=== PATIENT | female | born 1985 | race Caucasian/White ===

== ENCOUNTER 2017-01-22 14:07 | Emergency (ER) | payer OTHER ==
--- NOTE | 2017-01-22 15:10 | EDM.PDOC ---
ED HPI GENERAL MEDICAL PROBLEM - General Chief Complaint: Abdominal Pain Stated Complaint: SEVERE ABDOMINAL PAIN Time Seen by Provider: 01/22/17 14:40 Source of Information: Reports: Patient History Limitations: Reports: No Limitations - History of Present Illness INITIAL COMMENTS - FREE TEXT/NARRATIVE: HISTORY AND PHYSICAL: History of present illness: [Patient comes to the emergency room complaining of upper abdominal discomfort. Onset: 5 AM this morning and has remained constant. She describes the pain and describes it as a tight band across her upper abdomen and a feeling of pressure. She felt cold and clammy last night, but did not have any abdominal pain. Slept well until the pain woke her at 5 AM this morning. She has a family history of pancreatitis. She is very concerned that she may have pancreatitis. 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 She does not smoke and drinks alcohol approximately twice per year. Last ETOH intake was about 6-7 months ago. She denies fever and chills but states that she felt clammy last evening. She's had 2 episodes of emesis today, both times after trying to eat. Diminished appetite due to nausea. No burning with urination or urinary frequency. No muscle or joint aches or pains. No constipation or diarrhea. No recent cough or cold. No recent infections. No runny nose or sore throat. Does not get regular periods due to a tubal ligation & history of endometrial ablation. History of appendectomy and cholecystectomy. No recent trauma. ] Review of systems: As per history of present illness and below otherwise all systems reviewed and negative. Past medical history: As per history of present illness and as reviewed below otherwise noncontributory. Surgical history: As per history of present illness and as reviewed below otherwise noncontributory. Social history: No reported history of drug or alcohol abuse. Family history: As per history of present illness and as reviewed below otherwise noncontributory. Physical exam: HEENT: Atraumatic, normocephalic. Oral mucous membranes are pink and moist. Lungs: Clear to auscultation, breath sounds equal bilaterally. Heart: S1S2, regular rate and rhythm. Abdomen: Abdomen is flat and nondistended, soft. She is tender with palpation over her mid abdomen and throughout her upper abdomen. No masses guarding or rebound. No CVA tenderness. Pelvis: Stable nontender. Genitourinary: Deferred. Rectal: Deferred. Extremities: Atraumatic. Neurovascular unremarkable. Neuro: Awake, alert, oriented. Motor and sensory unremarkable throughout. Exam nonfocal. Diagnostics: [CBC, CMP, UA, qualitative Hcg, amylase, lipase ] Therapeutics: [Zofran 4mg ODT] Impression: [abdominal pain] Plan: [Discussed patient's lab results with her. No abnormalities are noted. Amylase and lipase are within normal limits. Patient states that she is relieved with this information. We discussed CT of her abdomen and pelvis versus continued monitoring at home. After reviewing pros and cons patient would like to be discharged to home with continued monitoring of her symptoms. Strict return precautions are reviewed with the patient and we discussed that if she should feels though she is worsening or desires reevaluation in the emergency room will complete a CT scan at this time. We also reviewed that it is possible she has a viral illness causing her discomfort. Recommend pushing fluids and bland diet which she may gradually increase as tolerated. She verbalized full understanding of today's discussion and all of her questions are answered and concerns are addressed. She is offered a prescription for Zofran which she declines at this time.] Definitive disposition and diagnosis as appropriate pending reevaluation and review of above. Bilateral Lower Abdominal Pain Score (Numeric/FACES): 8 - Related Data Allergies Allergy/AdvReac Type Severity Reaction Status Date / Time hydromorphone [From Dilaudid] Allergy Swollen Verified 01/22/17 14:20 Eyes Home Meds: Home Meds . 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 ED EXAM, GI/ABD - Physical Exam Exam: See Below Course - Vital Signs Last Recorded V/S: Last Vital Signs Temp 97.8 F 01/22/17 17:09 Pulse 66 01/22/17 17:09 Resp 14 01/22/17 17:09 BP 102/57 L 01/22/17 17:09 Pulse Ox 100 01/22/17 17:09 - Orders/Labs/Meds Labs: Laboratory Tests 01/22/17 01/22/17 01/22/17 Range/Units 14:50 14:50 14:58 WBC 4.38 (4.0-11.0) K/uL RBC 4.30 (4.30-5.90) M/uL Hgb 11.6 L (12.0-16.0) g/dL Hct 35.7 L (36.0-46.0) % MCV 83.0 (80.0-98.0) fL MCH 27.0 (27.0-32.0) pg MCHC 32.5 (31.0-37.0) g/dL RDW Std Deviation 38.6 (28.0-62.0) fl RDW Coeff of Mony 13 (11.0-15.0) % Plt Count 187 (150-400) K/uL MPV 10.20 (7.40-12.00) fL Neut % (Auto) 54.8 (48.0-80.0) % Lymph % (Auto) 35.8 (16.0-40.0) % Carter % (Auto) 6.8 (0.0-15.0) % Eos % (Auto) 2.1 (0.0-7.0) % Baso % (Auto) 0.5 (0.0-1.5) % Neut # (Auto) 2.4 (1.4-5.7) K/uL Lymph # (Auto) 1.6 (0.6-2.4) K/uL Carter # (Auto) 0.3 (0.0-0.8) K/uL Eos # (Auto) 0.1 (0.0-0.7) K/uL Baso # (Auto) 0.0 (0.0-0.1) K/uL Nucleated RBC % 0.0 /100WBC Nucleated RBCs # 0 K/uL Sodium (136-146) mmol/L Potassium (3.5-5.1) mmol/L Chloride (98-110) mmol/L Carbon Dioxide (21-31) mmol/L BUN (6.0-23.0) mg/dL Creatinine (0.6-1.5) mg/dL Est Cr Clr Drug Dosing mL/min Estimated GFR (MDRD) ml/min Glucose (60-110) mg/dL Calcium (8.8-10.8) mg/dL Total Bilirubin (0.1-1.5) mg/dL AST (5-40) IU/L ALT (8-54) IU/L Alkaline Phosphatase (40-150) Total Protein (6.0-8.0) g/dL Albumin (3.5-5.0) g/dL Globulin (2.0-3.5) g/dL Albumin/Globulin Ratio (1.3-2.8) Amylase (10-90) U/L Lipase (7-80) U/L Urine Color YELLOW Urine Appearance CLEAR Urine pH 5.5 (5.0-8.0) Ur Specific [place] >= 1.030 (1.001-1.035) Urine Protein NEGATIVE (NEGATIVE) mg/dL Urine Glucose (UA) NEGATIVE (NEGATIVE) mg/dL Urine Ketones NEGATIVE (NEGATIVE) mg/dL Urine Occult Blood NEGATIVE (NEGATIVE) Urine Nitrite NEGATIVE (NEGATIVE) Urine Bilirubin NEGATIVE (NEGATIVE) Urine Urobilinogen 0.2 (<2.0) EU/dL Ur Leukocyte Esterase NEGATIVE (NEGATIVE) Urine RBC 0-1 (0-2/HPF) Urine WBC 1-3 (0-5/HPF) Ur Epithelial Cells FEW (NONE-FEW) Urine Bacteria FEW (NEGATIVE) Urine Mucus MODERATE (NONE-MOD) Urine HCG, Qual NEGATIVE (NEGATIVE) 01/22/17 Range/Units 14:58 WBC (4.0-11.0) K/uL RBC (4.30-5.90) M/uL Hgb (12.0-16.0) g/dL Hct (36.0-46.0) % MCV (80.0-98.0) fL MCH (27.0-32.0) pg MCHC (31.0-37.0) g/dL RDW Std Deviation (28.0-62.0) fl RDW Coeff of Mony (11.0-15.0) % Plt Count (150-400) K/uL MPV (7.40-12.00) fL Neut % (Auto) (48.0-80.0) % Lymph % (Auto) (16.0-40.0) % Carter % (Auto) (0.0-15.0) % Eos % (Auto) (0.0-7.0) % Baso % (Auto) (0.0-1.5) % Neut # (Auto) (1.4-5.7) K/uL Lymph # (Auto) (0.6-2.4) K/uL Carter # (Auto) (0.0-0.8) K/uL Eos # (Auto) (0.0-0.7) K/uL Baso # (Auto) (0.0-0.1) K/uL Nucleated RBC % /100WBC Nucleated RBCs # K/uL Sodium 139 (136-146) mmol/L Potassium 3.8 (3.5-5.1) mmol/L Chloride 108 (98-110) mmol/L Carbon Dioxide 24 (21-31) mmol/L BUN 12 (6.0-23.0) mg/dL Creatinine 0.8 (0.6-1.5) mg/dL Est Cr Clr Drug Dosing 105.51 mL/min Estimated GFR (MDRD) > 60.0 ml/min Glucose 93 (60-110) mg/dL Calcium 8.6 L (8.8-10.8) mg/dL Total Bilirubin 0.4 (0.1-1.5) mg/dL AST 14 (5-40) IU/L ALT 14 (8-54) IU/L Alkaline Phosphatase 74 (40-150) Total Protein 6.4 (6.0-8.0) g/dL Albumin 3.7 (3.5-5.0) g/dL Globulin 2.7 (2.0-3.5) g/dL Albumin/Globulin Ratio 1.4 (1.3-2.8) Amylase 78 (10-90) U/L Lipase 57 (7-80) U/L Urine Color Urine Appearance Urine pH (5.0-8.0) Ur Specific [place] (1.001-1.035) Urine Protein (NEGATIVE) mg/dL Urine Glucose (UA) (NEGATIVE) mg/dL Urine Ketones (NEGATIVE) mg/dL Urine Occult Blood (NEGATIVE) Urine Nitrite (NEGATIVE) Urine Bilirubin (NEGATIVE) Urine Urobilinogen (<2.0) EU/dL Ur Leukocyte Esterase (NEGATIVE) Urine RBC (0-2/HPF) Urine WBC (0-5/HPF) Ur Epithelial Cells (NONE-FEW) Urine Bacteria (NEGATIVE) Urine Mucus (NONE-MOD) Urine HCG, Qual (NEGATIVE) Meds: Medications Discontinued Medications Generic Name Dose Route Start Last Admin Trade Name Earline PRN Reason Stop Dose Admin Ondansetron HCl 4 mg 01/22/17 16:00 01/22/17 16:14 Zofran Odt PO 01/22/17 16:01 4 mg ONETIME ONE Administration Departure - Departure Time of Disposition: 17:01 Disposition: Home, Self-Care 01 Condition: Good Clinical Impression: Abdominal pain - Discharge Information Instructions: Abdominal Pain, Adult Referrals: PCP,None [Primary Care Provider] - Forms: ED Department Discharge Additional Instructions: The following information is given to patients seen in the emergency department who are being discharged to home. This information is to outline your options for follow-up care. We provide all patients seen in our emergency department with a follow-up referral. The need for follow-up, as well as the timing and circumstances, are variable depending upon the specifics of your emergency department visit. If you don't have a primary care physician on staff, we will provide you with a referral. We always advise you to contact your personal physician following an emergency department visit to inform them of the circumstance of the visit and for follow-up with them and/or the need for any referrals to a consulting specialist. The emergency department will also refer you to a specialist when appropriate. This referral assures that you have the opportunity for follow-up care with a specialist. All of these measure are taken in an effort to provide you with optimal care, which includes your follow-up. Under all circumstances we always encourage you to contact your private physician who remains a resource for coordinating your care. When calling for follow-up care, please make the office aware that this follow-up is from your recent emergency room visit. If for any reason you are refused follow-up, please contact the [facility] emergency department at and asked to speak to the emergency department charge nurse. [facility] [address] [place] [id number] Establish care with a local primary care provider or the clinic listed above. Continue to monitor symptoms. Push fluids, get plenty of rest. Return to ER as needed as discussed.
[2017-01-22 15:29] LABS: CHLORIDE,CL 108 mmol/L (98-110); SODIUM,NA 139 mmol/L (136-146)
[2017-01-22] MEDS ORDERED: Ondansetron 4 MG Tab.DIS PO ONE (16:00)
== END 2017-01-22 17:10 | disposition home or self-care (01) ==
LOC: MW.ED 14:07
DX: R10.10 Upper abdominal pain, unspecified (principal); R10.31 Right lower quadrant pain; R10.32 Left lower quadrant pain; Z88.5 Allergy status to narcotic agent
CPT/HCPCS: 36415; 80053; 81001; 81025; 82150; 83690; 85025; 99284; A9270; 99283

== ENCOUNTER 2017-03-28 12:53 | Emergency (ER) | payer BC, OTHER ==
--- NOTE | 2017-03-28 14:20 | EDM.PDOC ---
ED HPI GENERAL MEDICAL PROBLEM - General Chief Complaint: Abdominal Pain Stated Complaint: ABD PAIN/PRESSURE Time Seen by Provider: 03/28/17 13:38 Source of Information: Reports: Patient History Limitations: Reports: No Limitations - History of Present Illness INITIAL COMMENTS - FREE TEXT/NARRATIVE: History of present illness: Patient had laparoscopic for endometriosis in 2016. A subsequent abdominal wall abscess that was drained and drainage tube placed. Her wound healed she recently started having pus draining from her umbilicus once again. He says she feels pressure in her abdomen and it feels the same. Denies any fevers, chills, abdominal pain, nausea, vomiting or diarrhea. Review of systems: As per history of present illness and below otherwise all systems reviewed and negative. Past medical history: As per history of present illness and as reviewed below otherwise noncontributory. Surgical history: As per history of present illness and as reviewed below otherwise noncontributory. Social history: No reported history of drug or alcohol abuse. Family history: As per history of present illness and as reviewed below otherwise noncontributory. Physical exam: Vital signs stable afebrile General: Well developed, well nourished in NAD HEENT: Atraumatic, normocephalic, pupils reactive, negative for conjunctival pallor or scleral icterus, mucous membranes moist, throat clear, neck supple, nontender, trachea midline. Lungs: Clear to auscultation, breath sounds equal bilaterally, chest nontender. Heart: S1S2, regular, negative for clicks, rubs, or JVD. Abdomen: Soft, nondistended, nontender no rebound or guarding. Umbilicus with erythema and some small amount of purulent drainage from her umbilicus. Negative for masses or hepatosplenomegaly. Negative for costovertebral tenderness. Pelvis: Stable nontender. Genitourinary: Deferred. Rectal: Deferred. Extremities: Atraumatic, negative for cords or calf pain. Neurovascular unremarkable. Neuro: Awake, alert, oriented. Cranial nerves II through XII unremarkable. Cerebellum unremarkable. Motor and sensory unremarkable throughout. Exam nonfocal. Diagnostics: [] Therapeutics: []Umbilical Wound culture sent Impression: []Umbilical abscess Plan: []Flagyl 3 times a day, keep wound clean, follow-up with general surgery Definitive disposition and diagnosis as appropriate pending reevaluation and review of above. 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 History: Reports: Endometrial Ablation Musculoskeletal History: Reports: None Neurological History: Reports: None Psychiatric History: Reports: None Endocrine/Metabolic History: Reports: None Hematologic History: Reports: None Immunologic History: Reports: None Oncologic (Cancer) History: Reports: None Dermatologic History: Reports: None - Infectious Disease History Infectious Disease History: Reports: Hepatitis A, Other (See Below) Other Infectious Disease History: Hx of Hep A, not currently positive - Past Surgical History Head Surgeries/Procedures: Reports: None HEENT Surgical History: Reports: Other (See Below) Other HEENT Surgeries/Procedures: tooth removed Cardiovascular Surgical History: Reports: None Respiratory Surgical History: Reports: None GI Surgical History: Reports: Appendectomy, Cholecystectomy Female Surgical History: Reports: Tubal Ligation Endocrine Surgical History: Reports: None Neurological Surgical History: Reports: None Musculoskeletal Surgical History: Reports: None Oncologic Surgical History: Reports: None Dermatological Surgical History: Reports: None Social & Family History - Family History Family Medical History: Noncontributory - Tobacco Use Smoking Status *Q: Never Smoker Second Hand Smoke Exposure: No - Caffeine Use Caffeine Use: Reports: Soda - Recreational Drug Use Recreational Drug Use: No ED ROS GENERAL - Review of Systems Review Of Systems: See Below (See history of present illness) ED EXAM, SKIN/RASH Exam: See Below (See history of present illness) Course - Vital Signs Last Recorded V/S: Last Vital Signs Temp 97.7 F 03/28/17 13:36 Pulse 78 03/28/17 13:36 Resp 18 03/28/17 13:36 BP 126/74 03/28/17 13:36 Pulse Ox 98 03/28/17 13:36 - Orders/Labs/Meds Orders: Active Orders 24 hr Category Date Time Status CULTURE WOUND [RM] Stat Lab 03/28/17 14:15 Uncollected Departure - Departure Time of Disposition: 14:18 Disposition: Home, Self-Care 01 Condition: Good Clinical Impression: Cutaneous abscess of umbilicus Clinical Impression: (Ruled Out): Abscess, umbilical - Discharge Information Prescriptions: metroNIDAZOLE [Flagyl] 500 mg PO Q8H #30 tab Referrals: PCP,None [Primary Care Provider] - Maria T Guaman MD [Physician] - (Next available) Additional Instructions: The following information is given to patients seen in the emergency department who are being discharged to home. This information is to outline your options for follow-up care. We provide all patients seen in our emergency department with a follow-up referral. The need for follow-up, as well as the timing and circumstances, are variable depending upon the specifics of your emergency department visit. If you don't have a primary care physician on staff, we will provide you with a referral. We always advise you to contact your personal physician following an emergency department visit to inform them of the circumstance of the visit and for follow-up with them and/or the need for any referrals to a consulting specialist. The emergency department will also refer you to a specialist when appropriate. This referral assures that you have the opportunity for follow-up care with a specialist. All of these measure are taken in an effort to provide you with optimal care, which includes your follow-up. Under all circumstances we always encourage you to contact your private physician who remains a resource for coordinating your care. When calling for follow-up care, please make the office aware that this follow-up is from your recent emergency room visit. If for any reason you are refused follow-up, please contact the Emergency Department at and asked to speak to the emergency department charge nurse. Flagyl 3 times a day for 10 days umbilical wound clean and dry. General surgery Specialty Care - General Surgery Professional Building [address] [place] [address], [address] [place] [address] - My Orders Last 24 Hours: My Active Orders 03/28/17 14:15 CULTURE WOUND [RM] Stat - Assessment/Plan Last 24 Hours: My Active Orders 03/28/17 14:15 CULTURE WOUND [RM] Stat
== END 2017-03-28 14:30 | disposition home or self-care (01) ==
LOC: MW.ED 12:53
DX: L02.216 Cutaneous abscess of umbilicus (principal); Z90.49 Acquired absence of other specified parts of digestive tract; Z88.5 Allergy status to narcotic agent
CPT/HCPCS: 87070; 99283; 99284

== ENCOUNTER 2017-06-15 17:29 | Emergency (ER) | payer BC ==
--- NOTE | 2017-06-15 17:41 | EDM.PDOC ---
ED HPI GENERAL MEDICAL PROBLEM - General Chief Complaint: Abdominal Pain Stated Complaint: PAIN/SWELLING ABDOMINAL PAIN Time Seen by Provider: 06/15/17 17:30 Source of Information: Reports: Patient History Limitations: Reports: No Limitations - History of Present Illness INITIAL COMMENTS - FREE TEXT/NARRATIVE: HISTORY AND PHYSICAL: History of present illness: Patient is a 32-year-old female who presents to the emergency room with complaints of low abdominal pain and nausea since 06/10/2017. She states that the pain has progressively gotten worse over the last several days. She was seen at [facility] emergency room and had lab tests, CT of the abdomen and pelvis, and received IV antibiotics for "gastroenteritis". She states the pain has not improved since that time, fact gotten worse. History of UTIs, just completed Bactrim DS on Tuesday. States she has difficulty starting her stream, along with dysuria. She has a history of pancreatitis, but reports "it doesn't feel like that kind of pain". Bowel movements are normal. Denies any fever, chills, chest pain, shortness of breath or cough. Patient has had a endometrial ablation approximately 8 months ago and since has not had a menstrual period. Review of systems: As per history of present illness and below otherwise all systems reviewed and negative. Past medical history: As per history of present illness and as reviewed below otherwise noncontributory. Surgical history: As per history of present illness and as reviewed below otherwise noncontributory. Social history: No reported history of drug or alcohol abuse. Family history: As per history of present illness and as reviewed below otherwise noncontributory. Physical exam: General: Well-developed and well-nourished 32-year-old female. Alert and oriented. Nontoxic appearing and in no acute distress. HEENT: Atraumatic, normocephalic, pupils equal and reactive bilaterally, negative for conjunctival pallor or scleral icterus, mucous membranes moist, throat clear, neck supple, nontender, trachea midline. No drooling or trismus noted. No meningeal signs Lungs: Clear to auscultation, breath sounds equal bilaterally, chest nontender. Heart: S1S2, regular rate and rhythm without overt murmur Abdomen: Soft, nondistended, low abdominal tenderness. Negative for masses or hepatosplenomegaly. Negative for costovertebral tenderness. Pelvis: Stable nontender. Genitourinary: Deferred. Rectal: Deferred. Skin: Multiple tattoos noted throughout the body. Intact, warm, dry. No lesions or rashes noted. Extremities: Atraumatic, negative for cords or calf pain. Neurovascular unremarkable. Neuro: Awake, alert, oriented. Cranial nerves II through XII unremarkable. Cerebellum unremarkable. Motor and sensory unremarkable throughout. Exam nonfocal. Notes: Patient has had appendectomy and cholecystectomy. At this time the patient is declining a CT as she states that she had one in [facility] on Tuesday. She is agreeable to doing lab work and is requesting an ultrasound of her pelvis. Lab work and pelvic ultrasound are within normal limits. I did share this information with the patient unable to get the previous CT that was done last week. Patient is requesting that further evaluation be done and would like a CT done today. CT of the abdomen and pelvis shows no acute abnormalities. This information was shared with the patient. Give her a limited amount of tramadol and Zofran. We discussed appropriate follow-up with her primary care provider. Understanding and is agreeable to plan of care. She denies any further questions at this time. Diagnostics: CBC, CMP, amylase, lipase, UA, urine , abdominal/pelvic ultrasound Therapeutics: IV fluid, Toradol, Zofran Impression: Abdominal pain Plan: 1. [place] for the next 24-48 hours. Advance as tolerated. 2. Take your prescription for tramadol as needed for moderate to severe pain. Tramadol may cause drowsiness so do not take it will driving or needing to be functioning outside of the house. Otherwise you may take Tylenol and/or ibuprofen as needed. Zofran 1 tablet every 8 hours as needed for nausea management. Gentle heat to the low abdomen may be beneficial. 3. Follow-up with your primary caregiver in the next 1-2 days. Return to the ED as needed and as discussed. Definitive disposition and diagnosis as appropriate pending reevaluation and review of above. Duration: Day(s): Location: Reports: Abdomen Lower Abdominal Pain Score (Numeric/FACES): 9 - Related Data Allergies Allergy/AdvReac Type Severity Reaction Status Date / Time hydromorphone [From Dilaudid] Allergy Swollen Verified 06/15/17 17:42 Eyes Home Meds: Home Meds . [No Known Home Meds] 06/15/17 [History] Past Medical History HEENT History: Reports: None Cardiovascular History: Reports: None Respiratory History: Reports: None Gastrointestinal History: Reports: None Genitourinary History: Reports: Other (See Below) Other Genitourinary History: hx of UTI x2 [employer] History: Reports: Endometrial Ablation Musculoskeletal History: Reports: None Neurological History: Reports: None Psychiatric History: Reports: None Endocrine/Metabolic History: Reports: None Hematologic History: Reports: None Immunologic History: Reports: None Oncologic (Cancer) History: Reports: None Dermatologic History: Reports: None - Infectious Disease History Infectious Disease History: Reports: Hepatitis A, Other (See Below) Other Infectious Disease History: Hx of Hep A, not currently positive - Past Surgical History Head Surgeries/Procedures: Reports: None HEENT Surgical History: Reports: Other (See Below) Other HEENT Surgeries/Procedures: tooth removed Cardiovascular Surgical History: Reports: None Respiratory Surgical History: Reports: None GI Surgical History: Reports: Appendectomy, Cholecystectomy Female Surgical History: Reports: Tubal Ligation Endocrine Surgical History: Reports: None Neurological Surgical History: Reports: None Musculoskeletal Surgical History: Reports: None Oncologic Surgical History: Reports: None Dermatological Surgical History: Reports: None Social & Family History - Family History Family Medical History: Noncontributory - Tobacco Use Smoking Status *Q: Never Smoker Second Hand Smoke Exposure: No - Caffeine Use Caffeine Use: Reports: Soda - Recreational Drug Use Recreational Drug Use: No ED ROS GENERAL - Review of Systems Review Of Systems: ROS reveals no pertinent complaints other than HPI. ED EXAM, GI/ABD - Physical Exam Exam: See Below (See dictation) Course - Vital Signs Last Recorded V/S: Last Vital Signs Temp 98.0 F 06/15/17 17:38 Pulse 60 06/15/17 19:20 Resp 18 06/15/17 19:20 BP 112/74 06/15/17 19:20 Pulse Ox 98 06/15/17 19:20 - Orders/Labs/Meds Orders: Active Orders 24 hr Category Date Time Status Abdomen Pelvis w Cont [CT] Stat Exams 06/15/17 19:08 Taken Pelvis Non OB Comp [US] Stat Exams 06/15/17 17:53 Taken HCG QUALITATIVE,URINE [URCHEM] Stat Lab 06/15/17 17:55 Ordered UA W/MICROSCOPIC [URIN] Stat Lab 06/15/17 17:55 Ordered Labs: Laboratory Tests 06/15/1718 06/15/17 Range/Units 17:55 17:55 18:30 WBC 10.48 (4.0-11.0) K/uL RBC 4.73 (4.30-5.90) M/uL Hgb 13.1 (12.0-16.0) g/dL Hct 39.5 (36.0-46.0) % MCV 83.5 (80.0-98.0) fL MCH 27.7 (27.0-32.0) pg MCHC 33.2 (31.0-37.0) g/dL RDW Std Deviation 40.5 (28.0-62.0) fl RDW Coeff of Mony 13 (11.0-15.0) % Plt Count 227 (150-400) K/uL MPV 9.90 (7.40-12.00) fL Neut % (Auto) 81.3 H (48.0-80.0) % Lymph % (Auto) 13.5 L (16.0-40.0) % [place] % (Auto) 4.4 (0.0-15.0) % Eos % (Auto) 0.6 (0.0-7.0) % Baso % (Auto) 0.2 (0.0-1.5) % Neut # (Auto) 8.5 H (1.4-5.7) K/uL Lymph # (Auto) 1.4 (0.6-2.4) K/uL [place] # (Auto) 0.5 (0.0-0.8) K/uL Eos # (Auto) 0.1 (0.0-0.7) K/uL Baso # (Auto) 0.0 (0.0-0.1) K/uL Nucleated RBC % 0.0 /100WBC Nucleated RBCs # 0 K/uL Sodium (136-145) mmol/L Potassium (3.5-5.1) mmol/L Chloride (98-107) mmol/L Carbon Dioxide (21.0-32.0) mmol/L BUN (7.0-18.0) mg/dL Creatinine (0.6-1.0) mg/dL Est Cr Clr Drug Dosing mL/min Estimated GFR (MDRD) ml/min Glucose (74-106) mg/dL Calcium (8.5-10.1) mg/dL Total Bilirubin (0.2-1.0) mg/dL AST (15-37) IU/L ALT (14-63) IU/L Alkaline Phosphatase (46-116) U/L Total Protein (6.4-8.2) g/dL Albumin (3.4-5.0) g/dL Globulin (2.0-3.5) g/dL Albumin/Globulin Ratio (1.3-2.8) Amylase (25-115) U/L Lipase (73-393) U/L Urine Color YELLOW Urine Appearance CLEAR Urine pH 6.5 (5.0-8.0) Ur Specific [place] 1.020 (1.001-1.035) Urine Protein NEGATIVE (NEGATIVE) mg/dL Urine Glucose (UA) NEGATIVE (NEGATIVE) mg/dL Urine Ketones TRACE H (NEGATIVE) mg/dL Urine Occult Blood NEGATIVE (NEGATIVE) Urine Nitrite NEGATIVE (NEGATIVE) Urine Bilirubin NEGATIVE (NEGATIVE) Urine Urobilinogen 1.0 (<2.0) EU/dL Ur Leukocyte Esterase NEGATIVE (NEGATIVE) Urine RBC 0-1 (0-2/HPF) Urine WBC 0-2 (0-5/HPF) Ur Epithelial Cells FEW (NONE-FEW) Urine Bacteria RARE (NEGATIVE) Urine HCG, Qual NEGATIVE (NEGATIVE) 06/15/17 06/15/17 Range/Units 18:30 18:30 WBC (4.0-11.0) K/uL RBC (4.30-5.90) M/uL Hgb (12.0-16.0) g/dL Hct (36.0-46.0) % MCV (80.0-98.0) fL MCH (27.0-32.0) pg MCHC (31.0-37.0) g/dL RDW Std Deviation (28.0-62.0) fl RDW Coeff of Mony (11.0-15.0) % Plt Count (150-400) K/uL MPV (7.40-12.00) fL Neut % (Auto) (48.0-80.0) % Lymph % (Auto) (16.0-40.0) % [place] % (Auto) (0.0-15.0) % Eos % (Auto) (0.0-7.0) % Baso % (Auto) (0.0-1.5) % Neut # (Auto) (1.4-5.7) K/uL Lymph # (Auto) (0.6-2.4) K/uL [place] # (Auto) (0.0-0.8) K/uL Eos # (Auto) (0.0-0.7) K/uL Baso # (Auto) (0.0-0.1) K/uL Nucleated RBC % /100WBC Nucleated RBCs # K/uL Sodium 140 (136-145) mmol/L Potassium 3.4 L (3.5-5.1) mmol/L Chloride 105 (98-107) mmol/L Carbon Dioxide 26.2 (21.0-32.0) mmol/L BUN 10 (7.0-18.0) mg/dL Creatinine 0.9 (0.6-1.0) mg/dL Est Cr Clr Drug Dosing 92.91 mL/min Estimated GFR (MDRD) > 60.0 ml/min Glucose 112 H (74-106) mg/dL Calcium 8.9 (8.5-10.1) mg/dL Total Bilirubin 0.4 (0.2-1.0) mg/dL AST 17 (15-37) IU/L ALT 20 (14-63) IU/L Alkaline Phosphatase 92 (46-116) U/L Total Protein 7.6 (6.4-8.2) g/dL Albumin 3.9 (3.4-5.0) g/dL Globulin 3.7 H (2.0-3.5) g/dL Albumin/Globulin Ratio 1.1 L (1.3-2.8) Amylase 70 (25-115) U/L Lipase 192 (73-393) U/L Urine Color Urine Appearance Urine pH (5.0-8.0) Ur Specific [place] (1.001-1.035) Urine Protein (NEGATIVE) mg/dL Urine Glucose (UA) (NEGATIVE) mg/dL Urine Ketones (NEGATIVE) mg/dL Urine Occult Blood (NEGATIVE) Urine Nitrite (NEGATIVE) Urine Bilirubin (NEGATIVE) Urine Urobilinogen (<2.0) EU/dL Ur Leukocyte Esterase (NEGATIVE) Urine RBC (0-2/HPF) Urine WBC (0-5/HPF) Ur Epithelial Cells (NONE-FEW) Urine Bacteria (NEGATIVE) Urine HCG, Qual (NEGATIVE) Meds: Medications Discontinued Medications Generic Name Dose Route Start Last Admin Trade Name Earline PRN Reason Stop Dose Admin Sodium Chloride 1,000 mls @ 999 mls/hr 06/15/17 17:52 06/15/17 18:13 Normal Saline IV 06/15/17 18:52 999 mls/hr STAT ONE Administration Iopamidol 200 ml 06/15/17 19:45 06/15/17 19:48 Isovue Multipack-370 (76%) IVPUSH 06/15/17 19:46 100 ml ONETIME STA Administration Ketorolac Tromethamine 30 mg 06/15/17 17:52 06/15/17 18:29 Toradol IVPUSH 06/15/17 17:53 30 mg ONETIME ONE Administration Morphine Sulfate 4 mg 06/15/17 19:08 06/15/17 19:21 Morphine IVPUSH 06/15/17 19:09 4 mg ONETIME ONE Administration Ondansetron HCl 4 mg 06/15/17 17:52 06/15/17 18:26 Zofran IVPUSH 06/15/17 17:53 4 mg ONETIME ONE Administration Departure - Departure Time of Disposition: 20:25 Disposition: Home, Self-Care 01 Clinical Impression: Abdominal pain Qualifiers: Abdominal location: lower abdomen, unspecified Qualified Code(s): R10.30 - Lower abdominal pain, unspecified - Discharge Information Instructions: Abdominal Pain, Adult, [id number] Referrals: PCP,None [Primary Care Provider] - Forms: ED Department Discharge Additional Instructions: The following information is given to patients seen in the emergency department who are being discharged to home. This information is to outline your options for follow-up care. We provide all patients seen in our emergency department with a follow-up referral. The need for follow-up, as well as the timing and circumstances, are variable depending upon the specifics of your emergency department visit. If you don't have a primary care physician on staff, we will provide you with a referral. We always advise you to contact your personal physician following an emergency department visit to inform them of the circumstance of the visit and for follow-up with them and/or the need for any referrals to a consulting specialist. The emergency department will also refer you to a specialist when appropriate. This referral assures that you have the opportunity for follow-up care with a specialist. All of these measure are taken in an effort to provide you with optimal care, which includes your follow-up. Under all circumstances we always encourage you to contact your private physician who remains a resource for coordinating your care. When calling for follow-up care, please make the office aware that this follow-up is from your recent emergency room visit. If for any reason you are refused follow-up, please contact the [facility] Emergency Department at and asked to speak to the emergency department charge nurse. [facility] [address] [place] [id number] 1. [place] for the next 24-48 hours. Advance as tolerated. 2. Take your prescription for tramadol as needed for moderate to severe pain. Tramadol may cause drowsiness so do not take it will driving or needing to be functioning outside of the house. Otherwise you may take Tylenol and/or ibuprofen as needed. Zofran 1 tablet every 8 hours as needed for nausea management. Gentle heat to the low abdomen may be beneficial. 3. Follow-up with your primary caregiver in the next 1-2 days. Return to the ED as needed and as discussed. - My Orders Last 24 Hours: My Active Orders 06/15/17 17:53 Pelvis Non OB Comp [US] Stat 06/15/17 17:55 HCG QUALITATIVE,URINE [URCHEM] Stat UA W/MICROSCOPIC [URIN] Stat 06/15/17 19:08 Abdomen Pelvis w Cont [CT] Stat - Assessment/Plan Last 24 Hours: My Active Orders 06/15/17 17:53 Pelvis Non OB Comp [US] Stat 06/15/17 17:55 HCG QUALITATIVE,URINE [URCHEM] Stat UA W/MICROSCOPIC [URIN] Stat 06/15/17 19:08 Abdomen Pelvis w Cont [CT] Stat
[2017-06-15] MEDS ORDERED: Ketorolac 30 MG/ML SDV IVPUSH ONE (17:52)
[2017-06-15] MEDS ORDERED: Sodium Chloride 0.9% 1,000 ML IV ONE (17:52)
[2017-06-15] MEDS ORDERED: Ondansetron 4 MG/2 ML SDV IVPUSH ONE (17:52)
[2017-06-15] MEDS ORDERED: Morphine 4 MG/ML Syringe IVPUSH ONE (19:08)
[2017-06-15 19:13] LABS: CHLORIDE,CL 105 mmol/L (98-107); SODIUM,NA 140 mmol/L (136-145)
[2017-06-15] MEDS ORDERED: Iopamidol 755 MG/ML 200 ML Multipack Bottle IVPUSH STA (19:45)
--- NOTE | 2017-06-16 09:51 | US ---
EXAM DATE: 06/15/17 PATIENT'S AGE: 32 Patient: CHANG WEAVER Facility: [place], [place] Site . Site : 1985 Study: US Pelvis [id number] 6:18:32 PM Ordering Physician: Doctor Barnes Final Report: INDICATION: Pelvic pain. TECHNIQUE: Transvaginal scanning was performed to optimally evaluate the endometrium and adnexa. Ovarian blood flow was evaluated with color-flow and pulsed Doppler. COMPARISON: None. FINDINGS: The uterus is normal in size and shape. The uterus measures 5.9 x 3.6 x 2.7 cm. No uterine mass is evident. The endometrial stripe is normal in thickness at 5 mm. The ovaries are normal in size and contain a number of follicles. The right ovary measures 3.2 x 3.0 x 2.3 cm and left 2.6 x 2.2 x 2.1 cm. Ovarian blood flow is demonstrated with color-flow and pulsed Doppler. No adnexal mass is evident. No free fluid is demonstrated. IMPRESSION: Negative transvaginal pelvic ultrasound. Dictated by Willam Ridley MD @ Jun 15 2017 6:43PM (Electronic Signature) Report Signed by Proxy. OSWALDO
--- NOTE | 2017-06-16 10:11 | CT ---
EXAM DATE: 06/15/17 PATIENT'S AGE: 32 Patient: CHANG WEAVER Facility: [place], [place] Site . Site : 1985 Study: CT Abdomen/Pelvis WITH [id number]/[id number] 7:59:12 PM Ordering Physician: Doctor Barnes Final Report: INDICATION: Lower abd pain x5d TECHNIQUE: CT abdomen and pelvis acquired with IV contrast. COMPARISON: None FINDINGS: Lower chest: Partially imaged bilateral breast prosthesis. Liver: Unremarkable. Spleen: Unremarkable. Pancreas: Unremarkable. Gallbladder and bile ducts: Cholecystectomy changes. Kidneys: Unremarkable. Adrenal glands: Unremarkable. GI tract: Gastric bypass changes. Moderate amount of stool. Appendectomy changes. Vascular structures: Negative. No sign of aneurysm. Lymph nodes: Unremarkable. Miscellaneous: Unremarkable. No free air or significant free fluid. Pelvic Organs: Arcuate versus partially septated uterus. Nonspecific fluid within the endometrial canal. Small amount of nonspecific free fluid within the pelvic cul-de-sac. Bones: Unremarkable for age. IMPRESSION: 1. No acute abnormality of the abdomen and pelvis. 2. Nonspecific fluid within the endometrial canal. If clinically warranted this could be further evaluated with a pelvic ultrasound. Dictated by Jamel Rasmussen MD @ 06/15/2017 8:14:42 PM Dictated by: Jamel Rasmussen MD @ 06/15/2017 20:14:48 (Electronic Signature) Report Signed by Proxy. [facility]
== END 2017-06-15 20:45 | disposition home or self-care (01) ==
LOC: MW.ED 17:29
DX: R10.30 Lower abdominal pain, unspecified (principal); Z88.5 Allergy status to narcotic agent; Z87.440 Personal history of urinary (tract) infections
CPT/HCPCS: 36415; 74177; 76856; 80053; 81001; 81025; 82150; 83690; 85025; 96361; 96374; 96375; 99284; J1885; J2270; J2405; J7040; Q9967

== ENCOUNTER 2017-11-12 11:13 | Emergency (ER) | payer SELFPAY ==
--- NOTE | 2017-11-12 11:29 | EDM.PDOC ---
ED HPI GENERAL MEDICAL PROBLEM - General Chief Complaint: Abdominal Pain Stated Complaint: STOMACH PAIN Time Seen by Provider: 11/12/17 11:28 Source of Information: Reports: Patient History Limitations: Reports: No Limitations - History of Present Illness INITIAL COMMENTS - FREE TEXT/NARRATIVE: HISTORY AND PHYSICAL: History of present illness: Patient is a 32-year-old female here with complaint of lower abdominal pain 2 days. She describes the pain as a constant pressure and stabbing and is worse when she urinates or has a bowel movement. She reports she's been nauseous and has vomited 3 times. She reports a history of chronic diarrhea but denies any constipation, hematuria or melena. She denies dysuria or hematuria. She denies any fevers, chills, chest pain, shortness of breath. Patient has a history of tubal ligation, removal of pancreatic tumors, cholecystectomy, appendectomy, abscess drainage from lower abdomen. She notes a history of endometriosis and endometrial ablation. She reports a history of chronic pancreatitis. Review of systems: As per history of present illness and below otherwise all systems reviewed and negative. Past medical history: As per history of present illness and as reviewed below otherwise noncontributory. Surgical history: As per history of present illness and as reviewed below otherwise noncontributory. Social history: No reported history of drug or alcohol abuse. Family history: As per history of present illness and as reviewed below otherwise noncontributory. Physical exam: General: Patient sitting comfortably in no acute distress and nontoxic appearing HEENT: Atraumatic, normocephalic, pupils reactive, negative for conjunctival pallor or scleral icterus, mucous membranes moist, throat clear, neck supple, nontender, trachea midline. No meningeal signs. Lungs: Clear to auscultation, breath sounds equal bilaterally, chest nontender. Heart: S1S2, regular, negative for clicks, rubs, or overt murmur. Abdomen: Bowel sounds normal. Moderate pain to palpation of the RLQ, LLQ, and periumbically. There is a well healed 3cm scar just above the pubic symphosis without erythema, warmth, or drainage. Soft, nondistended. Negative for masses or hepatosplenomegaly. Negative for costovertebral tenderness. Pelvis: Stable nontender. Genitourinary: Deferred. Rectal: Deferred. Extremities: Atraumatic, negative for cords or calf pain. Neurovascular unremarkable. Neuro: Awake, alert, oriented. Cranial nerves II through XII unremarkable. Cerebellum unremarkable. Motor and sensory unremarkable throughout. Exam nonfocal. Notes: Labs and imaging are unremarkable, discussed with patient. She will follow up with women's health regarding pelvic pain. She declines any need for pain medications at home. Diagnostics: CBC, CMP, lipase, amylase, CT abdomen/pelvis w/ contrast, pelvic US Therapeutics: 1L NS IV 20mg Toradol IV 4mg Zofran IV Prescriptions: None Impression: Pelvic pain Plan: 1. Take motrin or tylenol as needed and use heating pads as needed. 2. Follow up with navigating officer 3. Return to ED as needed as discussed Definitive disposition and diagnosis as appropriate pending reevaluation and review of above. Pelvic Pain Score (Numeric/FACES): 8 - Related Data Allergies Allergy/AdvReac Type Severity Reaction Status Date / Time hydromorphone [From Dilaudid] Allergy Swelling Verified 11/12/17 11:29 Home Meds: Home Meds . 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 Musculoskeletal History: Reports: None Neurological History: Reports: None Psychiatric History: Reports: None Endocrine/Metabolic History: Reports: None Hematologic History: Reports: None Immunologic History: Reports: None Oncologic (Cancer) History: Reports: None Dermatologic History: Reports: None - Infectious Disease History Infectious Disease History: Reports: Hepatitis A, Other (See Below) Other Infectious Disease History: Hx of Hep A, not currently positive - Past Surgical History Head Surgeries/Procedures: Reports: None HEENT Surgical History: Reports: Other (See Below) Other HEENT Surgeries/Procedures: tooth removed Cardiovascular Surgical History: Reports: None Respiratory Surgical History: Reports: None GI Surgical History: Reports: Appendectomy, Cholecystectomy Female Surgical History: Reports: Tubal Ligation Endocrine Surgical History: Reports: None Neurological Surgical History: Reports: None Musculoskeletal Surgical History: Reports: None Oncologic Surgical History: Reports: None Dermatological Surgical History: Reports: None Social & Family History - Family History Family Medical History: Noncontributory - Caffeine Use Caffeine Use: Reports: Soda ED ROS GENERAL - Review of Systems Review Of Systems: ROS reveals no pertinent complaints other than HPI. ED EXAM, GI/ABD - Physical Exam Exam: See Below (see dictation) Course - Vital Signs Last Recorded V/S: Last Vital Signs Temp 36.7 C 11/12/17 11:22 Pulse 77 11/12/17 11:22 Resp 16 11/12/17 11:22 BP 126/86 11/12/17 11:22 Pulse Ox 97 11/12/17 11:22 - Orders/Labs/Meds Orders: Active Orders 24 hr Category Date Time Status Abdomen Pelvis w Cont [CT] Stat Exams 11/12/17 11:45 Taken Pelvis Non OB Comp [US] Stat Exams 11/12/17 13:30 Taken CULTURE URINE [RM] Stat Lab 11/12/17 13:50 Received Sodium Chloride 0.9% [Saline Flush] Med 11/12/17 11:38 Active 10 ml FLUSH ASDIRECTED PRN Sodium Chloride 0.9% [Saline Flush] Med 11/12/17 11:38 Active 2.5 ml FLUSH ASDIRECTED PRN Saline Lock Insert [OM.PC] Stat Oth 11/12/17 11:38 Ordered Medication Orders Sodium Chloride (Saline Flush) 10 ml FLUSH ASDIRECTED PRN PRN Reason: Keep Vein Open Sodium Chloride (Saline Flush) 2.5 ml FLUSH ASDIRECTED PRN PRN Reason: Keep Vein Open Labs: Laboratory Tests 11/12/17 11/12/17 11/12/17 Range/Units 11:55 11:55 13:50 WBC 7.46 (4.0-11.0) K/uL RBC 4.63 (4.30-5.90) M/uL Hgb 12.8 (12.0-16.0) g/dL Hct 38.4 (36.0-46.0) % MCV 82.9 (80.0-98.0) fL MCH 27.6 (27.0-32.0) pg MCHC 33.3 (31.0-37.0) g/dL RDW Std Deviation 39.1 (28.0-62.0) fl RDW Coeff of Mony 13 (11.0-15.0) % Plt Count 210 (150-400) K/uL MPV 9.80 (7.40-12.00) fL Neut % (Auto) 76.8 (48.0-80.0) % Lymph % (Auto) 16.6 (16.0-40.0) % [place] % (Auto) 5.5 (0.0-15.0) % Eos % (Auto) 0.8 (0.0-7.0) % Baso % (Auto) 0.3 (0.0-1.5) % Neut # (Auto) 5.7 (1.4-5.7) K/uL Lymph # (Auto) 1.2 (0.6-2.4) K/uL [place] # (Auto) 0.4 (0.0-0.8) K/uL Eos # (Auto) 0.1 (0.0-0.7) K/uL Baso # (Auto) 0.0 (0.0-0.1) K/uL Nucleated RBC % 0.0 /100WBC Nucleated RBCs # 0 K/uL Sodium 140 (136-145) mmol/L Potassium 3.5 (3.5-5.1) mmol/L Chloride 105 (98-107) mmol/L Carbon Dioxide 27.6 (21.0-32.0) mmol/L BUN 7 (7.0-18.0) mg/dL Creatinine 0.6 (0.6-1.0) mg/dL Est Cr Clr Drug Dosing TNP Estimated GFR (MDRD) > 60.0 ml/min Glucose 93 (74-106) mg/dL Calcium 8.9 (8.5-10.1) mg/dL Total Bilirubin 0.6 (0.2-1.0) mg/dL AST 13 L (15-37) IU/L ALT 20 (14-63) IU/L Alkaline Phosphatase 76 (46-116) U/L Total Protein 7.5 (6.4-8.2) g/dL Albumin 3.9 (3.4-5.0) g/dL Globulin 3.6 H (2.0-3.5) g/dL Albumin/Globulin Ratio 1.1 L (1.3-2.8) Amylase 62 (25-115) U/L Lipase 165 (73-393) U/L Urine Color YELLOW Urine Appearance CLEAR Urine pH 5.5 (5.0-8.0) Ur Specific [place] 1.010 (1.001-1.035) Urine Protein NEGATIVE (NEGATIVE) mg/dL Urine Glucose (UA) NEGATIVE (NEGATIVE) mg/dL Urine Ketones 15 H (NEGATIVE) mg/dL Urine Occult Blood NEGATIVE (NEGATIVE) Urine Nitrite NEGATIVE (NEGATIVE) Urine Bilirubin NEGATIVE (NEGATIVE) Urine Urobilinogen 0.2 (<2.0) EU/dL Ur Leukocyte Esterase NEGATIVE (NEGATIVE) Urine RBC NONE SEEN (0-2/HPF) Urine WBC 0-1 (0-5/HPF) Ur Epithelial Cells FEW (NONE-FEW) Urine Bacteria FEW (NEGATIVE) Meds: Medications Generic Name Dose Route Start Last Admin Trade Name Freq PRN Reason Stop Dose Admin Sodium Chloride 10 ml 11/12/17 11:38 Saline Flush FLUSH ASDIRECTED PRN Keep Vein Open Sodium Chloride 2.5 ml 11/12/17 11:38 Saline Flush FLUSH ASDIRECTED PRN Keep Vein Open Discontinued Medications Generic Name Dose Route Start Last Admin Trade Name Freq PRN Reason Stop Dose Admin Sodium Chloride 1,000 mls @ 999 mls/hr 11/12/17 11:38 11/12/17 12:17 Normal Saline IV 11/12/17 12:38 999 mls/hr STAT ONE Administration Iopamidol 100 ml 11/12/17 12:59 11/12/17 13:00 Isovue-370 (76%) IVPUSH 11/12/17 13:00 100 ml ONETIME STA Administration Ketorolac Tromethamine 30 mg 11/12/17 11:38 11/12/17 12:16 Toradol IVPUSH 11/12/17 11:39 30 mg ONETIME ONE Administration Ondansetron HCl 4 mg 11/12/17 11:38 11/12/17 12:13 Zofran IVPUSH 11/12/17 11:39 4 mg ONETIME ONE Administration Departure - Departure Time of Disposition: 15:01 Disposition: Home, Self-Care 01 Condition: Good Clinical Impression: Pelvic pain - Discharge Information Referrals: PCP,None [Primary Care Provider] - Forms: ED Department Discharge Additional Instructions: The following information is given to patients seen in the emergency department who are being discharged to home. This information is to outline your options for follow-up care. We provide all patients seen in our emergency department with a follow-up referral. The need for follow-up, as well as the timing and circumstances, are variable depending upon the specifics of your emergency department visit. If you don't have a primary care physician on staff, we will provide you with a referral. We always advise you to contact your personal physician following an emergency department visit to inform them of the circumstance of the visit and for follow-up with them and/or the need for any referrals to a consulting specialist. The emergency department will also refer you to a specialist when appropriate. This referral assures that you have the opportunity for follow-up care with a specialist. All of these measure are taken in an effort to provide you with optimal care, which includes your follow-up. Under all circumstances we always encourage you to contact your private physician who remains a resource for coordinating your care. When calling for follow-up care, please make the office aware that this follow-up is from your recent emergency room visit. If for any reason you are refused follow-up, please contact the [facility] Emergency Department at and asked to speak to the emergency department charge nurse. [facility] [address] [place] [address] [facility] - [facility] [address] [place] [address] [place] [address] 1. Take motrin or tylenol as needed and use heating pads as needed. 2. Follow up with navigating officer 3. Return to ED as needed as discussed - My Orders Last 24 Hours: My Active Orders 11/12/17 11:38 Sodium Chloride 0.9% [Saline Flush] 10 ml FLUSH ASDIRECTED PRN Sodium Chloride 0.9% [Saline Flush] 2.5 ml FLUSH ASDIRECTED PRN Saline Lock Insert [OM.PC] Stat 11/12/17 11:45 Abdomen Pelvis w Cont [CT] Stat 11/12/17 13:30 Pelvis Non OB Comp [US] Stat 11/12/17 13:50 CULTURE URINE [RM] Stat - Assessment/Plan Last 24 Hours: My Active Orders 11/12/17 11:38 Sodium Chloride 0.9% [Saline Flush] 10 ml FLUSH ASDIRECTED PRN Sodium Chloride 0.9% [Saline Flush] 2.5 ml FLUSH ASDIRECTED PRN Saline Lock Insert [OM.PC] Stat 11/12/17 11:45 Abdomen Pelvis w Cont [CT] Stat 11/12/17 13:30 Pelvis Non OB Comp [US] Stat 11/12/17 13:50 CULTURE URINE [RM] Stat
[2017-11-12] MEDS ORDERED: Sodium Chloride 0.9% 2.5 ML Syringe FLUSH PRN (11:38)
[2017-11-12] MEDS ORDERED: Ondansetron 4 MG/2 ML SDV IVPUSH ONE (11:38)
[2017-11-12] MEDS ORDERED: Ketorolac 30 MG/ML SDV IVPUSH ONE (11:38)
[2017-11-12] MEDS ORDERED: Sodium Chloride 0.9% 10 ML Syringe FLUSH PRN (11:38)
[2017-11-12] MEDS ORDERED: Sodium Chloride 0.9% 1,000 ML IV ONE (11:38)
[2017-11-12 12:29] LABS: CHLORIDE,CL 105 mmol/L (98-107); SODIUM,NA 140 mmol/L (136-145)
[2017-11-12] MEDS ORDERED: Iopamidol 755 Mg/ML 100 ML Bottle IVPUSH STA (12:59)
--- NOTE | 2017-11-14 13:20 | CT ---
EXAM DATE: 11/12/17 PATIENT'S AGE: 32 Patient: CHANG WEAVER Facility: [place], [place] Site . Site : 1985 Study: CT Abdomen/Pelvis W CONT [id number] 12:58:14 PM Ordering Physician: Doctor Barnes Final Report: HISTORY: Lower abdominal pain with Valsalva. COMPARISON: 06/15/2017. TECHNIQUE: Axial images were obtained through the abdomen and pelvis following 100 cc of Isovue-370 intravenous contrast. FINDINGS: The lung bases are clear. Cholecystectomy. Visual changes along the upper stomach. Mild inflammatory stranding is noted in the right pelvis/adnexal region could be related to the ovary. There is coarse calcification to the right of the uterus which may be within the uterus or ovary however appears unchanged when compared to the prior study. Nondistended fluid filled loops of distal small bowel. No evidence for bowel obstruction. The liver, spleen, pancreas, adrenal glands and kidneys are within normal. Probable tiny renal stones. No hydronephrosis. IMPRESSION: Mild amount inflammatory stranding in the right pelvis/adnexal region may related to the ovary/uterus. This could be further evaluated with pelvic ultrasound as clinically indicated. Please note that all CT scans at this facility use dose modulation, iterative reconstruction, and/or weight-based dosing when appropriate to reduce radiation dose to as low as reasonably achievable. Dictated by Brigid Fonseca MD @ Nov 12 2017 1:16PM (Electronic Signature) Report Signed by Proxy. OSWALDO
--- NOTE | 2017-11-14 13:28 | US ---
EXAM DATE: 11/12/17 PATIENT'S AGE: 32 Patient: CHANG WEAVER Facility: [place], [place] Site . Site : 1985 Study: US Pelvis [id number] 2:27:49 PM Ordering Physician: Doctor Barnes Final Report: INDICATION: Pelvic pain. History of endometriosis and endo ablation. TECHNIQUE: Ultrasound pelvis transvaginal for better assessment or to better visualize the endometrium. Real-time sonographic images with spectral and color Doppler imaging of the ovaries were obtained. COMPARISON: None FINDINGS: Uterus: 6 x 4 x 3 cm. Normal echotexture of the myometrium. No masses. Endometrium: Transvaginal imaging was performed to better evaluate the endometrium. Endometrial thickness measures 4 mm. No sign of endometrial mass or fluid. Right ovary measures 3 x 2 x 2 cm and left ovary measures 2 x 2 x 2 cm. No ovarian or adnexal masses. Normal arterial and venous blood flow is demonstrated in both ovaries. Cul-de-sac: No significant free fluid. IMPRESSION: Normal pelvic ultrasound. No finding to explain pain. Dictated by Pan Barnett MD @ Nov 12 2017 2:46PM (Electronic Signature) Report Signed by Proxy. OSWALDO
== END 2017-11-12 15:44 | disposition home or self-care (01) ==
LOC: MW.ED 11:13
DX: R10.2 Pelvic and perineal pain (principal); Z90.49 Acquired absence of other specified parts of digestive tract
CPT/HCPCS: 36415; 74177; 76856; 80053; 81001; 82150; 83690; 85025; 87086; 96361; 96374; 96375; 99284; J1885; J2405; J7040; Q9967; 99283

== ENCOUNTER 2019-09-25 10:16 | Emergency (ER) | payer OTHER ==
[2019-09-25] MEDS ORDERED: Sodium Chloride 0.9% 1,000 ML IV ONE (10:36)
[2019-09-25] MEDS ORDERED: LORazepam 2 MG/ML SDV IVPUSH ONE ×2 (10:36→13:25)
[2019-09-25] MEDS ORDERED: Ondansetron 4 MG/2 ML SDV IVPUSH ONE (10:36)
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
[2019-09-25] MEDS ORDERED: fentaNYL 100 MCG/2 ML SDV IVPUSH ONE (11:47)
[2019-09-25 11:52] LABS: BLOOD UREA NITROGEN,BUN 6 mg/dL (7.0-18.0); CHLORIDE,CL 105 mmol/L (98-107); GLUCOSE RANDOM 95 mg/dL (74-106); LIPASE 160 U/L (73-393); POTASSIUM,K 3.9 mmol/L (3.5-5.1); SODIUM,NA 140 mmol/L (136-145)
[2019-09-25] MEDS ORDERED: diphenhydrAMINE 50 MG/ML SDV IVPUSH ONE (12:12)
[2019-09-25] MEDS ORDERED: fentaNYL 50 MCG/ML SDV IVPUSH ONE (12:14)
== END 2019-09-25 13:45 | disposition home or self-care (01) ==
LOC: MW.ED 10:16
DX: F41.9 Anxiety disorder, unspecified (principal); Z88.5 Allergy status to narcotic agent; Z79.899 Other long term (current) drug therapy
CPT/HCPCS: 80053; 83690; 85025; 96361; 96374; 96375; 96376; 99283; J1200; J2060; J2405; J3010; J7030

== ENCOUNTER 2020-01-09 16:59 | Emergency (ER) | payer OTHER ==
[2020-01-09] MEDS ORDERED: Sodium Chloride 0.9% 1,000 ML IV ONE (17:57)
[2020-01-09] MEDS ORDERED: Ketorolac 30 MG/ML SDV IVPUSH ONE (18:00)
--- NOTE | 2020-01-09 18:36 | EDM.PDOC ---
ED HPI GENERAL MEDICAL PROBLEM - General Chief Complaint: Abdominal Pain Stated Complaint: ABDOMINAL PAIN, BLEEDING Time Seen by Provider: 01/09/20 17:04 Source of Information: Reports: Patient History Limitations: Reports: No Limitations - History of Present Illness INITIAL COMMENTS - FREE TEXT/NARRATIVE: HISTORY AND PHYSICAL: History of present illness: Patient is a 34-year-old female who presents to the emergency room today with concern of lower abdominal pain x1 week that she describes as constant. Patient states that she saw a Primary care Provider in [facility] and was given doxycycline for possible pelvic inflammatory disease and as well as a Rocephin shot. Patient states she was tested for gonorrhea and chlamydia, and had an ultrasound at that time and states all came back unremarkable and negative. Patient states that she has been with the same sexual partner for 2 years so was not certain of this diagnosis. Patient states that today her abdominal pain has worsened and she is having vaginal bleeding. Patient states that she is passing some clots which is unusual for her and states that from the beginning of today she has used 3 large pads. Patient states she has a history of endometrial ablation and has her "tubes tied ". Patient states she has also had her gallbladder and appendix removed and has had a tummy tuck. Patient states that she was also given tramadol for her symptoms and has been taking this along with ibuprofen with minimal relief of symptoms. Patient denies any other symptoms or concerns. Patient denies fever, chills, chest pain, shortness of breath, or cough. Denies headache, neck stiff ness, change in vision, syncope, or near syncope. Denies vomiting, diarrhea, constipation, or dysuria. Has not noted any blood in urine or stool. Patient has been eating and drinking appropriately. Review of systems: As per history of present illness and below otherwise all systems reviewed and negative. Past medical history: As per history of present illness and as reviewed below otherwise noncontributory. Surgical history: As per history of present illness and as reviewed below otherwise noncontributory. Social history: See social history for further information Family history: As per history of present illness and as reviewed below otherwise noncontributory. Physical exam: General: Patient is alert, oriented, and in no acute distress. Patient laying comfortably on exam table. Vitals and reviewed by me. HEENT: Atraumatic, normocephalic, pupils equal and reactive bilaterally, negative for conjunctival pallor or scleral icterus, mucous membranes moist, TMs normal bilaterally, throat clear, neck supple, nontender, trachea midline. No drooling or trismus noted. No meningeal signs. No hot potato voice noted. Lungs: Clear to auscultation, breath sounds equal bilaterally, chest nontender. Heart: S1S2, regular rate and rhythm without overt murmur Abdomen: Soft, nondistended, moderate RLQ/periumbilical tenderness without guarding or rebound tenderness, negative Santos sign. Negative for masses or hepatosplenomegaly. Negative for costovertebral tenderness. Pelvis: Stable nontender. Genitourinary: Hand Knitter at bedside Aye Gao. External genitalia grossly unremarkable. There is a slight blood tinged discharge in the vaginal vault. Cervical os is closed without blood noted. Negative cervical motion tenderness without chandelier sign. Mild uterine tenderness without adnexal tenderness. Rectal: Deferred. Skin: Intact, warm, dry. No lesions or rashes noted. Extremities: Atraumatic, negative for cords or calf pain. Neurovascular unremarkable. Neuro: Awake, alert, oriented. Cranial nerves II through XII unremarkable. Cerebellum unremarkable. Motor and sensory unremarkable throughout. Exam nonfoca l. Notes: Signs and symptoms are prompt return to the ED thoroughly discussed with patient. Discussed importance for follow-up with a women's health provider. Voices understanding and is agreeable to plan of care. Denies any further questions or concerns at this time. Diagnostics: CBC, CMP, UA, Lipase, TVUS, abd/pelvic CT w cont., TVUS Therapeutics: Toradol, NS Prescription: None Impression: Lower abdominal pain, unspecified Plan: 1. You can alternate ibuprofen and Tylenol as directed for pain and discomfort. 2. Follow-up with a women's health provider as discussed. Return to the ED as needed and as discussed. Definitive disposition and diagnosis as appropriate pending reevaluation and review of above. Lower Abdominal Pain Score (Numeric/FACES): 9 - Related Data Allergies Allergy/AdvReac Type Severity Reaction Status Date / Time hydromorphone [From Dilaudid] Allergy Swelling Verified 01/09/20 17:16 Home Meds: Home Meds . [No Known Home Meds] 01/09/20 [History] Past Medical History HEENT History: Reports: None Other HEENT History: wears glasses Cardiovascular History: Reports: None Respiratory History: Reports: None Gastrointestinal History: Reports: None Other Gastrointestinal History: chronic pancreatitis Genitourinary History: Reports: Other (See Below) Other Genitourinary History: hx of UTI x2 [employer] History: Reports: Endometrial Ablation Musculoskeletal History: Reports: None Neurological History: Reports: None Psychiatric History: Reports: None Endocrine/Metabolic History: Reports: None Hematologic History: Reports: None Immunologic History: Reports: None Oncologic (Cancer) History: Reports: None Dermatologic History: Reports: None - Infectious Disease History Infectious Disease History: Reports: Hepatitis A Other Infectious Disease History: Hx of Hep A, not currently positive - Past Surgical History Head Surgeries/Procedures: Reports: None HEENT Surgical History: Reports: Other (See Below) Other HEENT Surgeries/Procedures: tooth removed Cardiovascular Surgical History: Reports: None Respiratory Surgical History: Reports: None GI Surgical History: Reports: Appendectomy, Cholecystectomy Female Surgical History: Reports: Tubal Ligation Endocrine Surgical History: Reports: None Neurological Surgical History: Reports: None Musculoskeletal Surgical History: Reports: None Oncologic Surgical History: Reports: None Dermatological Surgical History: Reports: None Social & Family History - Family History Family Medical History: No Pertinent Family History - Tobacco Use Tobacco Use Status *Q: Never Tobacco User - Caffeine Use Caffeine Use: Reports: None - Recreational Drug Use Recreational Drug Use: No ED ROS GENERAL - Review of Systems Review Of Systems: Comprehensive ROS is negative, except as noted in HPI. ED EXAM, GENERAL - Physical Exam Exam: See Below (see dictation) Course - Vital Signs Last Recorded V/S: Last Vital Signs Temp 97.5 F 01/09/20 20:25 Pulse 60 01/09/20 20:25 Resp 18 01/09/20 20:25 BP 117/77 01/09/20 20:25 Pulse Ox 100 01/09/20 20:25 - Orders/Labs/Meds Labs: Laboratory Tests 01/09/20 01/09/20 01/09/20 Range/Units 17:25 17:25 18:16 WBC 7.77 (4.0-11.0) K/uL RBC 4.86 (4.30-5.90) M/uL Hgb 12.3 (12.0-16.0) g/dL Hct 39.7 (36.0-46.0) % MCV 81.7 (80.0-98.0) fL MCH 25.3 L (27.0-32.0) pg MCHC 31.0 (31.0-37.0) g/dL RDW Std Deviation 40.5 (28.0-62.0) fl RDW Coeff of Mony 13 (11.0-15.0) % Plt Count 214 (150-400) K/uL MPV 10.10 (7.40-12.00) fL Neut % (Auto) 72.8 (48.0-80.0) % Lymph % (Auto) 21.2 (16.0-40.0) % [place] % (Auto) 5.0 (0.0-15.0) % Eos % (Auto) 0.9 (0.0-7.0) % Baso % (Auto) 0.1 (0.0-1.5) % Neut # (Auto) 5.7 (1.4-5.7) K/uL Lymph # (Auto) 1.7 (0.6-2.4) K/uL [place] # (Auto) 0.4 (0.0-0.8) K/uL Eos # (Auto) 0.1 (0.0-0.7) K/uL Baso # (Auto) 0.0 (0.0-0.1) K/uL Nucleated RBC % 0.0 /100WBC Nucleated RBCs # 0 K/uL Sodium (136-145) mmol/L Potassium (3.5-5.1) mmol/L Chloride (98-107) mmol/L Carbon Dioxide (21.0-32.0) mmol/L BUN (7.0-18.0) mg/dL Creatinine (0.6-1.0) mg/dL Est Cr Clr Drug Dosing mL/min Estimated GFR (MDRD) ml/min Glucose (74-106) mg/dL Calcium (8.5-10.1) mg/dL Total Bilirubin (0.2-1.0) mg/dL AST (15-37) IU/L ALT (14-63) IU/L Alkaline Phosphatase (46-116) U/L Total Protein (6.4-8.2) g/dL Albumin (3.4-5.0) g/dL Globulin (2.6-4.0) g/dL Albumin/Globulin Ratio (0.9-1.6) Lipase (73-393) U/L Urine Color YELLOW Urine Appearance CLEAR Urine pH 6.0 (5.0-8.0) Ur Specific [place] >= 1.030 (1.001-1.035) Urine Protein TRACE H (NEGATIVE) mg/dL Urine Glucose (UA) NEGATIVE (NEGATIVE) mg/dL Urine Ketones TRACE H (NEGATIVE) mg/dL Urine Occult Blood LARGE H (NEGATIVE) Urine Nitrite NEGATIVE (NEGATIVE) Urine Bilirubin NEGATIVE (NEGATIVE) Urine Urobilinogen 0.2 (<2.0) EU/dL Ur Leukocyte Esterase NEGATIVE (NEGATIVE) Urine RBC 25-30 (0-2/HPF) Urine WBC 0-1 (0-5/HPF) Ur Epithelial Cells RARE (NONE-FEW) Urine Bacteria RARE (NEGATIVE) Urine HCG, Qual NEGATIVE (NEGATIVE) Stephanie species DNA (NEGATIVE) Gardnerella DNA Probe (NEGATIVE) Trichomonas DNA Probe (NEGATIVE) 01/09/20 01/09/20 Range/Units 18:16 20:15 WBC (4.0-11.0) K/uL RBC (4.30-5.90) M/uL Hgb (12.0-16.0) g/dL Hct (36.0-46.0) % MCV (80.0-98.0) fL MCH (27.0-32.0) pg MCHC (31.0-37.0) g/dL RDW Std Deviation (28.0-62.0) fl RDW Coeff of Mony (11.0-15.0) % Plt Count (150-400) K/uL MPV (7.40-12.00) fL Neut % (Auto) (48.0-80.0) % Lymph % (Auto) (16.0-40.0) % [place] % (Auto) (0.0-15.0) % Eos % (Auto) (0.0-7.0) % Baso % (Auto) (0.0-1.5) % Neut # (Auto) (1.4-5.7) K/uL Lymph # (Auto) (0.6-2.4) K/uL [place] # (Auto) (0.0-0.8) K/uL Eos # (Auto) (0.0-0.7) K/uL Baso # (Auto) (0.0-0.1) K/uL Nucleated RBC % /100WBC Nucleated RBCs # K/uL Sodium 138 (136-145) mmol/L Potassium 4.0 (3.5-5.1) mmol/L Chloride 101 (98-107) mmol/L Carbon Dioxide 27.9 (21.0-32.0) mmol/L BUN 14 (7.0-18.0) mg/dL Creatinine 1.0 (0.6-1.0) mg/dL Est Cr Clr Drug Dosing 82.06 mL/min Estimated GFR (MDRD) > 60.0 ml/min Glucose 92 (74-106) mg/dL Calcium 9.0 (8.5-10.1) mg/dL Total Bilirubin 0.4 (0.2-1.0) mg/dL AST 12 L (15-37) IU/L ALT 10 L (14-63) IU/L Alkaline Phosphatase 94 (46-116) U/L Total Protein 7.8 (6.4-8.2) g/dL Albumin 4.0 (3.4-5.0) g/dL Globulin 3.8 (2.6-4.0) g/dL Albumin/Globulin Ratio 1.1 (0.9-1.6) Lipase 142 (73-393) U/L Urine Color Urine Appearance Urine pH (5.0-8.0) Ur Specific [place] (1.001-1.035) Urine Protein (NEGATIVE) mg/dL Urine Glucose (UA) (NEGATIVE) mg/dL Urine Ketones (NEGATIVE) mg/dL Urine Occult Blood (NEGATIVE) Urine Nitrite (NEGATIVE) Urine Bilirubin (NEGATIVE) Urine Urobilinogen (<2.0) EU/dL Ur Leukocyte Esterase (NEGATIVE) Urine RBC (0-2/HPF) Urine WBC (0-5/HPF) Ur Epithelial Cells (NONE-FEW) Urine Bacteria (NEGATIVE) Urine HCG, Qual (NEGATIVE) Stephanie species DNA NEGATIVE (NEGATIVE) Gardnerella DNA Probe NEGATIVE (NEGATIVE) Trichomonas DNA Probe NEGATIVE (NEGATIVE) Meds: Medications Discontinued Medications Generic Name Dose Route Start Last Admin Trade Name Freq PRN Reason Stop Dose Admin Sodium Chloride 1,000 mls @ 999 mls/hr 01/09/20 17:57 01/09/20 18:05 Normal Saline IV 01/09/20 18:57 999 mls/hr BOLUS ONE Administration Iopamidol 100 ml 01/09/20 19:01 01/09/20 19:02 Isovue Multipack-370 (76%) IVPUSH 01/09/20 19:02 100 ml ONETIME STA Administration Ketorolac Tromethamine 30 mg 01/09/20 18:00 01/09/20 18:08 Toradol IVPUSH 01/09/20 18:01 30 mg ONETIME ONE Administration Departure - Departure Time of Disposition: 20:00 Disposition: Home, Self-Care 01 Clinical Impression: Abdominal pain Qualifiers: Abdominal location: lower abdomen, unspecified Qualified Code(s): R10.30 - Lower abdominal pain, unspecified - Discharge Information Instructions: Abdominal Pain, Adult, [id number] Referrals: PCP,Not In Area [Primary Care Provider] - Forms: ED Department Discharge Additional Instructions: The following information is given to patients seen in the emergency department who are being discharged to home. This information is to outline your options for follow-up care. We provide all patients seen in our emergency department with a follow-up referral. The need for follow-up, as well as the timing and circumstances, are variable depending upon the specifics of your emergency department visit. If you don't have a primary care physician on staff, we will provide you with a referral. We always advise you to contact your personal physician following an emergency department visit to inform them of the circumstance of the visit and for follow-up with them and/or the need for any referrals to a consulting specialist. The emergency department will also refer you to a specialist when appropriate. This referral assures that you have the opportunity for follow-up care with a specialist. All of these measure are taken in an effort to provide you with optimal care, which includes your follow-up. Under all circumstances we always encourage you to contact your private physician who remains a resource for coordinating your care. When calling for follow-up care, please make the office aware that this follow-up is from your recent emergency room visit. If for any reason you are refused follow-up, please contact the [facility] Emergency Department at and asked to speak to the emergency department charge nurse. [facility] [address] [place] [address] [facility] [address] [place] [id number] [facility] [address] [place] [address] 1. You can alternate ibuprofen and Tylenol as directed for pain and discomfort. 2. Follow-up with a women's health provider as discussed. Return to the ED as needed and as discussed. Sepsis Event Note (ED) - Evaluation Sepsis Screening Result: No Definite Risk - Focused Exam Vital Signs: Vital Signs Temp Pulse Resp BP Pulse Ox 01/09/20 20:25 97.5 F 60 18 117/77 100 01/09/20 17:12 97 F 67 18 118/75 97
[2020-01-09 18:47] LABS: BLOOD UREA NITROGEN,BUN 14 mg/dL (7.0-18.0); CARBON DIOXIDE,CO2 27.9 mmol/L (21.0-32.0); CHLORIDE,CL 101 mmol/L (98-107); GLUCOSE RANDOM 92 mg/dL (74-106); LIPASE 142 U/L (73-393); SODIUM,NA 138 mmol/L (136-145)
[2020-01-09] MEDS ORDERED: Iopamidol 755 MG/ML 500 ML Multipack Bottle IVPUSH STA (19:01)
--- NOTE | 2020-01-09 19:16 | US ---
INDICATION: Pelvic pain. Negative HCG. Previous history of tubal ligation in 2014 and endometrial ablation in 2015. Previous history of endometriosis. COMPARISON: Ultrasound of the pelvis from 11/12/2017. FINDINGS: Transvaginal ultrasound examination of the female pelvis was performed. The uterus is anteverted with no evidence of mass. It measures 6.6 x 3.0 x 5.1 cm. The endometrial lining is normal in thickness at 4 mm. There is new fluid mildly distending the cornua bilaterally. The midline portion of the uterine cavity is not distended with fluid. The findings suggest Asherman syndrome with obliteration of the central uterine cavity by synechiae. The ovaries are normal in appearance and size, the right measuring 2.7 x 3.5 x 2.1 cm and the left measuring 2.9 x 2.7 x 2.9 cm. There is normal color and pulse doppler flow in both ovaries. The patient did have pain over the left ovary during examination. There is no sign of free fluid in the pelvis. IMPRESSION: New mild dilatation of both uterine cornua, without dilatation of the midline uterine cavity. The findings suggest Asherman syndrome with obliteration of the uterine cavity by synechiae. No other abnormality seen in the pelvis. Dictated by Tres Valencia MD @ Jan 09 2020 7:08PM Signed by Dr. Tres Valencia @ Jan 09 2020 7:14PM
--- NOTE | 2020-01-09 19:31 | CT ---
INDICATION: Lower abdominal pain, vaginal bleeding TECHNIQUE: CT abdomen and pelvis acquired with IV 100 cc Isovue 370 contrast. COMPARISON: Pelvic ultrasound from earlier today FINDINGS: Lower chest: Bilateral breast implants. Liver: Unremarkable. Spleen: Unremarkable. Pancreas: Unremarkable. Gallbladder and bile ducts: S/p cholecystectomy. Adrenal glands: Unremarkable. Kidneys: Unremarkable. GI tract: Status post gastric bypass procedure. Appendix is not seen and may be surgically absent. Vascular structures: Unremarkable. Lymph nodes: Unremarkable. Miscellaneous: Unremarkable. No free air or significant free fluid. Pelvic Organs: Unremarkable. Bones: Unremarkable for age. IMPRESSION: No etiology seen to explain lower abdominal pain. Status post cholecystectomy and gastric bypass procedure. The appendix is not seen and may be surgically absent. Please note that all CT scans at this facility use dose modulation, iterative reconstruction, and/or weight-based dosing when appropriate to reduce radiation dose to as low as reasonably achievable. Dictated by Libby Akins MD @ Jan 09 2020 7:24PM Signed by Dr. Libby Akins @ Jan 09 2020 7:30PM
[2020-01-14 13:03] LABS: C.TRACHOMATIS BY TMA Negative (Negative); N.GONORRHOEAE BY TMA Negative (Negative)
== END 2020-01-09 20:25 | disposition home or self-care (01) ==
LOC: MW.ED 16:59
DX: R10.31 Right lower quadrant pain (principal); R10.33 Periumbilical pain; Z88.5 Allergy status to narcotic agent; Z90.49 Acquired absence of other specified parts of digestive tract; Z98.51 Tubal ligation status
CPT/HCPCS: 36415; 74177; 76830; 80053; 81001; 81025; 83690; 85025; 87480; 87491; 87510; 87591; 87660; 96374; 99284; J1885; J7030; Q9967